=== PATIENT | male | born 1980 | race African-American/Black ===

== ENCOUNTER 2020-08-11 17:27 | Inpatient (IN) | payer MEDICAID ==
[~2020-08-11] VITALS: Ht 175.3 cm; Wt 69.9 kg
[2020-08-11] MEDS ORDERED: BISACODYL 10 MG SUPP PR PRN (19:30)
[2020-08-11] MEDS ORDERED: ACETAMINOPHEN 325 MG TABLET PO PRN (19:30)
[2020-08-11] MEDS ORDERED: POLYETHYLENE GLYCOL 17 GM PACKET PO PRN (19:30)
[2020-08-11] MEDS ORDERED: ONDANSETRON ODT 4 MG PO PRN (19:30)
[2020-08-11 22:18] VITALS: BP 97/66
[2020-08-11] MEDS ORDERED: QUETIAPINE 25MG TABLET PO PRN (22:30)
[2020-08-11 23:03] VITALS: BP 97/66
[2020-08-11] MEDS ORDERED: OLAN5TAB3 PO (23:41)
[2020-08-12 02:43] LABS: MICROSCOPIC INDICATED
[2020-08-12 06:27] LABS: CHOL/HDL RATIO 5.2; FREE T4 (FREE THYROXINE) 1.29 ng/dL (0.76-1.46); LDL/HDL RATIO 3.2 (0.5-3.0)
[2020-08-12 07:57] VITALS: BP 107/70
[2020-08-12] MEDS: NICOTINE 14MG/24 HR PATCH.TD24 TD SCH (07:59)
[2020-08-12] MEDS ORDERED: HEMORRHOIDAL OINT, 28 GM (PREP H) RC PRN (14:30)
[2020-08-12] MEDS ORDERED: IBUPROFEN 200 MG TABLET PO PRN (14:30)
[2020-08-12 15:26] LABS: BASOPHILS % (AUTO) 1 % (0-1); EOSINOPHILS % (AUTO) 3 % (1-7); LYMPHOCYTES % (AUTO) 20 % (22-44); MEAN CORPUSCULAR HEMOGLOBIN 29.1 pg (27.5-34.5); MEAN CORPUSCULAR HGB CONC 33.7 g/dL (33.2-36.2); MEAN PLATELET VOLUME 7.7 fL (7.4-10.4); MONOCYTES % (AUTO) 12 % (2-9); NEUTROPHILS % (AUTO) 65 % (42-75); PLATELET COUNT 311 x10^3/uL (130-400); RED BLOOD COUNT 4.91 x10^6/uL (4.38-5.82); RED CELL DISTRIBUTION WIDTH 17.7 % (9.4-14.8)
[2020-08-12 15:37] LABS: ANION GAP 5 mmol/L (5-15); CALCIUM 8.8 mg/dL (8.5-10.1); CHLORIDE 103 mmol/L (98-107); CREATININE 0.99 mg/dL (0.7-1.3)
[2020-08-12] MEDS: OLANZAPINE 10 MG TABLET PO SCH (20:37)
[2020-08-13 07:47] VITALS: BP 95/64
[2020-08-13] MEDS: NICOTINE 14MG/24 HR PATCH.TD24 TD SCH (09:03)
[2020-08-13 19:19] VITALS: BP 112/70
[2020-08-13] MEDS: OLANZAPINE 10 MG TABLET PO SCH (20:48)
[2020-08-14] MEDS: NICOTINE 14MG/24 HR PATCH.TD24 TD SCH (07:31)
[2020-08-14 07:34] VITALS: BP 95/60
[2020-08-14 19:21] VITALS: BP 108/70
[2020-08-14] MEDS: OLANZAPINE 10 MG TABLET PO SCH (20:07)
[2020-08-15 07:33] VITALS: BP 99/65
[2020-08-15] MEDS: NICOTINE 14MG/24 HR PATCH.TD24 TD SCH (09:00)
[2020-08-15] MEDS: HYDROXYZINE PAMOATE 50MG CAP PO PRN (14:31)
[2020-08-15 19:29] VITALS: BP 102/62
[2020-08-15] MEDS: OLANZAPINE 10 MG TABLET PO SCH (20:40)
[2020-08-16 05:48] VITALS: BP 103/66
[2020-08-16] MEDS: NICOTINE 14MG/24 HR PATCH.TD24 TD SCH (09:00)
[2020-08-16] MEDS: HYDROXYZINE PAMOATE 50MG CAP PO PRN (13:06)
[2020-08-16 19:19] VITALS: BP 115/70
[2020-08-16] MEDS: OLANZAPINE 10 MG TABLET PO SCH (20:24)
[2020-08-17 07:52] VITALS: BP 100/67
[2020-08-17] MEDS: NICOTINE 14MG/24 HR PATCH.TD24 TD SCH ×2 (09:15→09:34)
[2020-08-17] MEDS ORDERED: NICO-486 TD (13:05)
[2020-08-17] MEDS ORDERED: HYDR50CA2 PO (13:05)
[2020-08-17] MEDS ORDERED: OLAN10TA69 PO (13:05)
== END 2020-08-17 13:30 | disposition home or self-care (01) | DRG 885 ==
LOC: 3E 20:36
PROVIDERS: ADMIT Psychiatry & Neurology Psychosomatic Medicine; ATTEND Psychiatry & Neurology Psychosomatic Medicine
DX: F33.2 Major depressive disorder, recurrent severe without psychotic features (principal); R45.851 Suicidal ideations; F15.20 Other stimulant dependence, uncomplicated; F11.20 Opioid dependence, uncomplicated; F41.1 Generalized anxiety disorder; K64.9 Unspecified hemorrhoids; K59.00 Constipation, unspecified; F29 Unspecified psychosis not due to a substance or known physiological condition; F17.210 Nicotine dependence, cigarettes, uncomplicated; F12.10 Cannabis abuse, uncomplicated; Z90.49 Acquired absence of other specified parts of digestive tract; Z59.0 Homelessness; Z80.0 Family history of malignant neoplasm of digestive organs; Z88.0 Allergy status to penicillin
CPT/HCPCS: 36415; 71045; 80048; 80061; 81001; 82140; 84439; 84443; 85025; 87086; 93005; Q0162

== ENCOUNTER 2020-08-29 04:14 | Inpatient (IN) | payer MEDICAID ==
[~2020-08-29] VITALS: Ht 175.3 cm; Wt 71.9 kg
[~2020-08-29 04:14] MED LIST: HYDR50CA2 PO; NICO-486 TD; OLAN10TA9 PO; OLAN5TAB3 PO
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
[2020-08-29] MEDS ORDERED: ONDANSETRON ODT 4 MG PO ONE (05:00)
[2020-08-29] MEDS ORDERED: LORazepam 1MG TABLET PO ONE (05:00)
[2020-08-29] MEDS ORDERED: LORazepam 1MG TABLET ONE (05:07)
[2020-08-29] MEDS ORDERED: ONDANSETRON ODT 4 MG ONE (05:07)
--- NOTE | 2020-08-29 05:13 | NUR ---
PT CALM AND COOPERATIVE. WARM BLANKETS PROVIDED. AND PT MEDICATED PER MD ORDERS FOR ANXIETY AND NAUSEA.
[2020-08-29 05:24] LABS: BASOPHILS % (AUTO) 1 % (0-1); EOSINOPHILS % (AUTO) 2 % (1-7); LYMPHOCYTES % (AUTO) 22 % (22-44); MEAN CORPUSCULAR HEMOGLOBIN 29.1 pg (27.5-34.5); MEAN CORPUSCULAR HGB CONC 33.3 g/dL (33.2-36.2); MEAN PLATELET VOLUME 7.9 fL (7.4-10.4); MONOCYTES % (AUTO) 14 % (2-9); NEUTROPHILS % (AUTO) 62 % (42-75); PLATELET COUNT 295 x10^3/uL (130-400); RED BLOOD COUNT 4.65 x10^6/uL (4.38-5.82); RED CELL DISTRIBUTION WIDTH 17.9 % (9.4-14.8)
[2020-08-29 05:27] LABS: MD NO
[2020-08-29 05:33] LABS: ALBUMIN 3.1 g/dL (3.4-5.0); ANION GAP 3 mmol/L (5-15); CALCIUM 8.8 mg/dL (8.5-10.1); CHLORIDE 106 mmol/L (98-107)
[2020-08-29 05:42] LABS: ALANINE AMINOTRANSFERASE 1268 U/L (12-78); ALKALINE PHOSPHATASE 218 U/L (45-117); TOTAL PROTEIN 7.8 g/dL (6.4-8.2)
[2020-08-29 05:45] LABS: SALICYLATE LEVEL < 1.7 mg/dL (2.8-20.0)
--- NOTE | 2020-08-29 06:06 | NUR ---
MD came out of room, and asked if pt is no longer speaking and why. unknown, but on assesment of pt, he was asked if he's good, and pt nodded yes. pt sleeping at this time and not wanting to be interviewed.
--- NOTE | 2020-08-29 06:48 | NUR ---
REPORT AND CARE TO DONALD GUTIERREZ.
--- NOTE | 2020-08-29 06:50 | NUR ---
ASSUMED CARE OF PT. PT SLEEPING, BREATHING EVEN AND UNLABORED
[2020-08-29 09:00] VITALS: BP 109/68
--- NOTE | 2020-08-29 09:01 | NUR ---
AWOKE PT FOR URINE SAMPLE. PT AMBULATED ACROSS BR[place]NAN WITHOUT ASSISTANCE. VS UPDATED. PT STATES HE CONTINUES TO FEEL OUT OF IT MENTALLY. PT NOW LYING IN GURNEY WITH BLANKET OVER HEAD
[2020-08-29 09:21] LABS: AMPHETAMINE SCREEN, URINE Positive (Negative); BARBITURATE SCREEN, URINE Negative (Negative); BENZODIAZEPINE SCREEN, URINE Negative (Negative); CANNABINOID SCREEN, URINE Positive (Negative); COCAINE SCREEN, URINE Negative (Negative); METHADONE SCREEN, URINE Negative (Negative); OPIATE SCREEN, URINE Negative (Negative)
[2020-08-29 09:46] LABS: INTERNATIONAL NORMALIZED RATIO 1.11 (0.93-1.1); PROTHROMBIN TIME 11.9 Seconds (9.6-11.5)
[2020-08-29] MEDS ORDERED: SODIUM CHLORIDE FLUSH 10ML SYR IVF PRN (10:00)
--- NOTE | 2020-08-29 10:25 | NUR ---
Break RN note: H at bedside to evaluate pt. Pt resting in bed, KATIE.
[2020-08-29] MEDS ORDERED: SODIUM CHLORIDE 0.9% 1,000 ML IV SCH (10:30)
[2020-08-29] MEDS ORDERED: ENOXAPARIN 40 MG/0.4 ML SQ SCH (10:30)
[2020-08-29] MEDS ORDERED: ONDANSETRON 2MG/ML, 2ML IVPush PRN (10:30)
[2020-08-29] MEDS ORDERED: ACETAMINOPHEN 325 MG TABLET PO PRN (10:30)
[2020-08-29] MEDS ORDERED: ONDANSETRON ODT 4 MG PO PRN (10:30)
[2020-08-29] MEDS ORDERED: HYDROXYZINE PAMOATE 50MG CAP PO PRN (10:30)
[2020-08-29] MEDS ORDERED: NICOTINE 14MG/24 HR PATCH.TD24 TD SCH (10:30)
--- NOTE | 2020-08-29 10:43 | NUR ---
MISTAKEN ENTRY: REPORT CALLED BY THIS RN.
--- NOTE | 2020-08-29 10:43 | NUR ---
REPORT TO DEBBIE GUTIERREZ. PT TO BE TRANSPORTED TO FLOOR.
--- NOTE | 2020-08-29 11:07 | NUR ---
UPON ARRIVAL OF TRANSPORT STAFF PT STATES HE DOES NOT WANT TO BE ADMITTED TO HOSPITAL. AFTER DR HONG SPOKE WITH PT ABOUT HIS LABS AND HER CONCERNS FOR HEPATITIS AND THE NEED FOR TX, PT STATES HE DOES NOT WANT TO STAY AND WANTS TO SIGN OUT AMA. DENIES SUICIDAL IDEATION. PT SIGNED AMA PAPERWORK, PROVIDED HIS BELONINGS AND LEFT ER, STEADY GAIT.
--- NOTE | 2020-08-29 12:04 | NUR ---
AT REQUEST OF DR EDGAR, [employer] CONTACTED AND MADE AWARE OF CONCERN DR EDGAR HAS BECAUSE HE HAD TOLD DR EDGAR HE HAS SUICIDAL THOUGHTS. DISPATCH GIVEN MUCH INFORMATION POSSIBLE ABOUT PT.
[2020-08-29] MEDS ORDERED: LACTOBACILLUS CHEW TABLET PO SCH (16:00)
[2020-08-29] MEDS ORDERED: OLANZAPINE 5 MG TABLET PO SCH (21:00)
[2020-08-29] MEDS ORDERED: OLANZAPINE 10 MG TABLET PO SCH (21:00)
== END 2020-08-29 11:09 | disposition home or self-care (01) | DRG 442 ==
LOC: ED 05:30 → ORIP 09:35 → UNDOADMIN 09:35 → ORIP 09:40 → 3N 10:26 → UNDODISIN 12:29
PROVIDERS: ADMIT Internal Medicine; ATTEND Internal Medicine
DX: B17.9 Acute viral hepatitis, unspecified (principal); F33.2 Major depressive disorder, recurrent severe without psychotic features; R45.851 Suicidal ideations; F11.10 Opioid abuse, uncomplicated; F12.10 Cannabis abuse, uncomplicated; F41.9 Anxiety disorder, unspecified; Z72.0 Tobacco use; Z80.0 Family history of malignant neoplasm of digestive organs
CPT/HCPCS: 36415; 76700; 80053; 80074; 80299; 80307; 80320; 80329; 83690; 85025; 85610; 87806; G0378; Q0162; G0475; G0480